=== PATIENT | male | born 1985 | race African-American/Black ===

== ENCOUNTER 2017-06-06 21:34 | Emergency (ER) | payer MEDICAID ==
[~2017-06-06] VITALS: Ht 175.3 cm; Wt 77.1 kg
[~2017-06-06 21:34] MED LIST: AML5T PO
[2017-06-06 22:45] LABS: Albumin 4.1 g/dL (3.4-5.0); Anion Gap 8 (5-15); Aspartate Aminotransferase 32 U/L (15-37); BUN/Creatinine Ratio 9.3; Blood Urea Nitrogen 10 mg/dL (7-18); Calcium 8.4 mg/dL (8.5-10.1); Carbon Dioxide 28 mmol/L (21-32); Chloride 106 mmol/L (98-107); GFR African American 104 mL/min; GFR Non-African American 86 mL/min; Glucose 87 mg/dL (74-106); Sodium 142 mmol/L (136-145)
[2017-06-06 22:48] LABS: Acetaminophen 6.8 ug/mL (10-30); Alkaline Phosphatase 62 U/L (45-117); Bilirubin, Total 0.7 mg/dL (0.2-1.0); Salicylate < 1.7 mg/dL (2.8-20.0); Total Protein 7.5 g/dL (6.4-8.2)
[2017-06-06 23:01] LABS: Basophils # (auto) 0 uL; Basophils % (auto) 0.5 % (0.0-2.0); CONDITION Y; Eosinophils # (auto) 0.1 uL; Eosinophils % (auto) 2.2 % (0.0-7.0); Hematocrit 43.7 % (41.0-53.0); Hemoglobin 14.8 g/dL (13.5-17.5); Lymphocytes # (auto) 2.6 uL; Lymphocytes % (auto) 39.9 % (10.0-50.0); Mean Corpuscular Hemoglobin 32.4 pg (28.0-32.0); Mean Corpuscular Hgb Conc. 33.9 g/dL (32.0-36.0); Mean Corpuscular Volume 95.5 fL (80.0-100.0); Mean Platelet Volume 8.4 fL (7.4-10.4); Monocytes # (auto) 0.5 uL; Monocytes % (auto) 7.2 % (0.0-12.0); Neutrophils # (auto) 3.3 uL; Neutrophils % (auto) 50.2 % (37.0-80.0); Platelet Count (auto) 309 10^3/uL (140-450); White Blood Cell 6.6 10^3/uL (4.4-10.8)
[2017-06-06] MEDS ORDERED: LORazepam 0.5 MG TAB PO ONE (23:30)
[2017-06-07] VITALS: BP 155/113
[2017-06-07 01:21] LABS: Urine RBC None Seen /hpf (0 - 3)
[2017-06-07] MEDS ORDERED: NIFEdipine 10 MG CAP PO ONE (01:30)
[2017-06-07 01:43] LABS: Urine Bilirubin Negative (Negative); Urine Blood Negative /uL (Negative); Urine Color Yellow (Yellow); Urine Glucose Normal (Normal); Urine Ketone Negative (Negative); Urine Mucus FEW (None Seen); Urine Nitrite Negative (Negative); Urine Squamous Epithelial Cell FEW /hpf (<5); Urine Urobilinogen Normal (Negative)
[2017-06-07] MEDS ORDERED: traMADol HCL 50 MG TAB PO ONE (09:00)
[2017-06-07] MEDS ORDERED: chlorproMAZINE HCL 25 MG TAB PO ONE (09:00)
[2017-06-07] MEDS ORDERED: CITALOPRAM HYDROBR 20 MG TAB PO ONE (09:00)
== END 2017-06-07 09:34 | disposition short-term general hospital (02) ==
LOC: ER 21:46
DX: F20.9 Schizophrenia, unspecified (principal); R45.851 Suicidal ideations; I10 Essential (primary) hypertension; F32.9 Major depressive disorder, single episode, unspecified; F17.210 Nicotine dependence, cigarettes, uncomplicated; F12.10 Cannabis abuse, uncomplicated
CPT/HCPCS: 36415; 80053; 80307; 80320; 80329; 81001; 85025; 99285; Q0161

== ENCOUNTER 2017-07-31 22:53 | Emergency (ER) | payer SELFPAY ==
[~2017-07-31] VITALS: Ht 177.8 cm; Wt 81.6 kg
[2017-07-31 23:32] LABS: Basophils # (auto) 0.1 uL; Basophils % (auto) 1.2 % (0.0-2.0); Eosinophils # (auto) 0 uL; Eosinophils % (auto) 0.5 % (0.0-7.0); Hematocrit 43.9 % (41.0-53.0); Hemoglobin 15.1 g/dL (13.5-17.5); Lymphocytes % (auto) 22.5 % (10.0-50.0); Mean Corpuscular Hgb Conc. 34.4 g/dL (32.0-36.0); Mean Corpuscular Volume 95.7 fL (80.0-100.0); Mean Platelet Volume 7.9 fL (6.9-10.8); Monocytes # (auto) 0.5 uL; Monocytes % (auto) 5.7 % (0.0-12.0); Neutrophils # (auto) 6.2 uL; Neutrophils % (auto) 70.1 % (37.0-80.0); Platelet Count (auto) 245 10^3/uL (140-450); White Blood Cell 8.8 10^3/uL (4.4-10.8)
[2017-07-31 23:47] LABS: INR 1.07 (0.9-1.15); Partial Thromboplastin Time 26.6 sec (22.64-33.71); Prothrombin Time 11.7 sec (9.37-12.3)
[2017-07-31 23:49] LABS: Albumin 4.2 g/dL (3.4-5.0); Anion Gap 8 (5-15); Aspartate Aminotransferase 28 U/L (15-37); BUN/Creatinine Ratio 10.6; Blood Urea Nitrogen 11 mg/dL (7-18); Calcium 8.9 mg/dL (8.5-10.1); Carbon Dioxide 26 mmol/L (21-32); Chloride 108 mmol/L (98-107); GFR African American 108 mL/min; GFR Non-African American 89 mL/min; Glucose 97 mg/dL (74-106); Potassium 3.4 mmol/L (3.5-5.1); Sodium 142 mmol/L (136-145)
[2017-07-31 23:52] LABS: Acetaminophen < 2.0 ug/mL (10-30); Alkaline Phosphatase 60 U/L (45-117); Bilirubin, Total 0.6 mg/dL (0.2-1.0); Salicylate < 1.7 mg/dL (2.8-20.0); Total Protein 7.5 g/dL (6.4-8.2)
[2017-08-01] MEDS ORDERED: cloNIDine HCL 0.1 MG TAB PO ONE ×2 (06:15)
[2017-08-01 07:49] LABS: Urine Bilirubin Negative (Negative); Urine Blood Negative /uL (Negative); Urine Color Yellow (Yellow); Urine Glucose Normal (Normal); Urine Ketone Negative (Negative); Urine Nitrite Negative (Negative); Urine RBC None Seen /hpf (0 - 3); Urine Urobilinogen Normal (Negative)
[2017-08-01] MEDS ORDERED: LORazepam 0.5 MG TAB PO PRN (15:00)
[2017-08-03] MEDS ORDERED: LORazepam 0.5 MG TAB PO PRN (13:15)
[2017-08-04 07:35] VITALS: BP 136/78
== END 2017-08-04 12:00 | disposition home or self-care (01) ==
LOC: EDBD 22:53 → ER 22:55
DX: F32.9 Major depressive disorder, single episode, unspecified (principal); F20.9 Schizophrenia, unspecified; I10 Essential (primary) hypertension; F17.210 Nicotine dependence, cigarettes, uncomplicated; F12.10 Cannabis abuse, uncomplicated; R45.851 Suicidal ideations
CPT/HCPCS: 36415; 80053; 80307; 80320; 80329; 81001; 85025; 85610; 85730